=== PATIENT | female | born 1990 | race African-American/Black ===

== ENCOUNTER 2018-10-08 08:10 | Emergency (ER) | payer OTHER ==
[~2018-10-08] VITALS: Ht 154.9 cm; Wt 68.0 kg
[2018-10-08 08:20] VITALS: BP 109/65
[2018-10-08] MEDS ORDERED: HYDR25TA PO (08:30)
[2018-10-08] MEDS ORDERED: PRED-220 PO (08:30)
[2018-10-08] MEDS ORDERED: TRIA15OI TP (08:30)
--- NOTE | 2018-10-08 08:31 | PHYS DOC ---
Past Medical History Past Medical History: No Pertinent History (AUGIE FOY APRN) Past Surgical History: (AUGIE FOY APRN) Alcohol Use: Occasionally Drug Use: None, Marijuana (AUGIE FOY APRN) Adult General Chief Complaint Chief Complaint: SKIN PROBLEM HPI HPI Patient is a 27 year old female who presents with a pruritic rash that began a week ago. Patient denies any new contacts. Denies any fever. Denies any bradycardia at home having a similar rash. She states she's been trying over-the -counter medications including Benadryl with no relief. (RADHAAUGIE REAVES APRN) Review of Systems Review of Systems Constitutional: Denies fever or chills [] Eyes: Denies change in visual acuity, redness, or eye pain [] HENT: Denies nasal congestion or sore throat [] Respiratory: Denies cough or shortness of breath [] Cardiovascular: No additional information not addressed in HPI [] GI: Denies abdominal pain, nausea, vomiting, bloody stools or diarrhea [] : Denies dysuria or hematuria [] Musculoskeletal: Denies back pain or joint pain [] Integument: Reports a pruritic rash Neurologic: Denies headache, focal weakness or sensory changes [] All other systems were reviewed and found to be within normal limits, except as documented in this note. (AUGIE FOY APRN) Allergies Allergies Allergies Coded Allergies Type Severity Reaction Last Updated Verified No Known Drug Allergies 07/29/15 No (SUE FAUSTIN MD) Physical Exam Physical Exam Constitutional: Well developed, well nourished, no acute distress, non-toxic appearance. [] HENT: Normocephalic, atraumatic, bilateral external ears normal, oropharynx moist, no oral exudates, nose normal. [] Eyes: PERRLA, EOMI, conjunctiva normal, no discharge. [] Neck: Normal range of motion, no tenderness, supple, no stridor. [] Cardiovascular:Heart rate regular rhythm, no murmur [] Lungs & Thorax: Bilateral breath sounds clear to auscultation [] Abdomen: Bowel sounds normal, soft, no tenderness, no masses, no pulsatile masses. [] Skin: Warm, dry, bilateral upper extremity with moderate amount of erythematous papular rash, rash worse on the antecubital joints, similar rash on the face, neck, abdomen. Back: No tenderness, no CVA tenderness. [] Extremities: No tenderness, no cyanosis, no clubbing, ROM intact, no edema. [] Neurologic: Alert and oriented X 3, normal motor function, normal sensory function, no focal deficits noted. [] Psychologic: Affect normal, judgement normal, mood normal. [] (AUGIE FOY APRN) Current Patient Data Vital Signs Vital Signs Date Time Temp Pulse Resp B/P (MAP) Pulse Ox O2 Delivery O2 Flow Rate FiO2 10/08/18 08:20 98.4 79 16 109/65 (80) 100 Room Air 98.4 (SUE FAUSTIN MD) EKG EKG [] (AUGIE FOY APRN) Radiology/Procedures Radiology/Procedures [] (AUGIE FOY APRN) Course & Med Decision Making Course & Med Decision Making Pertinent Labs and Imaging studies reviewed. (See chart for details) This is a 27-year-old female patient presenting to the ED with contact dermatitis rash, no known cause. Rash present to the face and throughout the upper part of the body. Patient was discharged with prednisone, Atarax, and given triamcinolone cream to be mixed with the Eucerin. Follow-up with primary care doctor or cloth classer in 2 weeks if symptoms persist. (AUGIE FOY APRN) Course & Med Decision Making Staff Physician Addendum: I was working in the ER during the course of this patient's visit. I was available for consultation as needed, but I was not directly involved in the care of this patient. (SUE FAUSTIN MD) Dragon Disclaimer Dragon Disclaimer This electronic medical record was generated, in whole or in part, using a voice recognition dictation system. (AUGIE FOY APRN) Departure Departure Impression: Primary Impression: Contact dermatitis Disposition: 01 HOME, SELF-CARE Condition: STABLE Referrals: NO PCP (PCP) OWEN AUSTIN MD follow up in 2 weeks Patient Instructions: Contact Dermatitis Additional Instructions: You were evaluated in the emergency room for contact dermatitis rash. We put you on medications, take them as prescribed. This type of rash, takes a while to clear be patient with the treatment. You can follow-up with the provided cloth classer in one week if symptoms persist Scripts Triamcinolone Acetonide (TRIAMCINOLONE ACETONIDE 0.1% OINT) 15 Gm Oint...g. 1 LORENZO TP BID for WOUND CARE, #1 TUBE Prov: AUGIE FOY APRN 10/08/18 Hydroxyzine Hcl (HYDROXYZINE HCL) 25 Mg Tablet 1 TAB PO TID, #30 TAB Prov: AUGIE FOY APRN 10/08/18 Prednisone (PREDNISONE ) 10 Mg Tablet 10 MG PO UD for PREDNISONE TAPER, #39 TAB 0 Refills Take 3 tablets by mouth twice a day for 3 days, then take 2 tablets by mouth twice a day for 3 days, then take 1 tablet by mouth twice a day for 3 days, then take 1 tablet by mouth daily x 3 days, then stop. Prov: AUGIE FOY APRN 10/08/18 Problem Qualifiers Primary Impression: Contact dermatitis Contact dermatitis type: unspecified Contact dermatitis trigger: unspecified trigger Qualified Codes: L25.9 - Unspecified contact dermatitis, unspecified cause AUGIE FOY APRN Oct 08, 2018 08:30 SUE FAUSTIN MD Oct 08, 2018 08:43
== END 2018-10-08 08:38 | disposition home or self-care (01) ==
LOC: ER 08:10
DX: L25.9 Unspecified contact dermatitis, unspecified cause (principal)
CPT/HCPCS: 99283